=== PATIENT | female | born 1975 | race Caucasian/White ===

== ENCOUNTER 2021-02-27 17:51 | Emergency (ER) | payer MEDICAID, OTHER ==
[~2021-02-27] VITALS: Ht 160 cm; Wt 81.8 kg
[~2021-02-27 17:51] MED LIST: AZIT250T PO; DIPH25CA83 PO; FAMO40TA73 PO; HYDR-4383 PO
[2021-02-27 18:38] VITALS: BP 139/88
[2021-02-27] MEDS ORDERED: metoclopramide 10mg tablet PO ONE (22:40)
[2021-02-27] MEDS ORDERED: ketorolac trometh inj. 60 MG/2 ML VIAL IM ONE (22:40)
[2021-02-27] MEDS ORDERED: diphenhydrAMINE 25mg capsule PO ONE (22:40)
[2021-02-27] MEDS ORDERED: LORazepam 1 MG tablet PO ONE (22:40)
== END 2021-02-28 01:27 | disposition home or self-care (01) ==
LOC: ER 17:52
DX: G43.909 Migraine, unspecified, not intractable, without status migrainosus (principal); R11.10 Vomiting, unspecified; R53.83 Other fatigue; J45.909 Unspecified asthma, uncomplicated; Z87.442 Personal history of urinary calculi; Z87.440 Personal history of urinary (tract) infections; Z98.890 Other specified postprocedural states; Z88.5 Allergy status to narcotic agent; Z79.2 Long term (current) use of antibiotics; Z79.899 Other long term (current) drug therapy
CPT/HCPCS: 96372; 99284; J1885; Q0163

== ENCOUNTER 2021-04-12 23:58 | Emergency (ER) | payer OTHER ==
[~2021-04-12] VITALS: Ht 157.5 cm; Wt 92.1 kg
[2021-04-13 00:27] VITALS: BP 128/75
[2021-04-13] MEDS ORDERED: ibuprofen tablet 400 MG TABLET PO ONE (03:50)
== END 2021-04-13 04:55 | disposition home or self-care (01) ==
LOC: ER 23:59
DX: J45.909 Unspecified asthma, uncomplicated (principal); G43.909 Migraine, unspecified, not intractable, without status migrainosus; Z87.442 Personal history of urinary calculi; Z87.440 Personal history of urinary (tract) infections; Z98.890 Other specified postprocedural states; Z88.5 Allergy status to narcotic agent; Z79.2 Long term (current) use of antibiotics; Z79.899 Other long term (current) drug therapy
CPT/HCPCS: 99282